=== PATIENT | male | born 1955 | race Caucasian/White ===

== ENCOUNTER 2024-07-12 10:55 | Outpatient (CLI) | payer MEDICARE, OTHER, SELFPAY ==
--- NOTE | 2024-07-12 11:18 | ECG_ITS ---
Test Date: 2024-07-12 11:39:49 Measurements Intervals [place] Rate: 80 P: 9 OR: 205 QRS: 11 QRSD: 107 T: -5 QT: 368 QTc: 427 Interpretive Statements SINUS RHYTHM LEFT VENTRICULAR HYPERTROPHY BASELINE ARTIFACT- I, II, III, AVR, AVL, AVF, V1-V6 BORDERLINE ECG No previous ECG available for comparison Electronically Signed On 07-12-2024 12:01:39 BAG END SEWER by Miller Tellez D.O.
--- OUTSIDE RECORDS SUMMARY | 2024-07-12 11:54 | XMS_ITS | Encounter Summary ---
Author Organization [facility] Address [facility] [place] [address] Care Team Providers Care Marine Superintendent Name Role Phone Dolly Aguayo DO Primary Care Provider [phone] Encounter Details Date Type Department Care Team (Late st Contact Info) Description 07/18/2023 Heliae Message Enc [facility] [address] [place] [phone] [place], [facility] Provider RE: Patient Amendment Request Social History Tobacco Use Types Packs/Day Years Used Date Smoking Tobacco: Never Smokeless Tobacco: Never Alcohol Use Standard Drinks/Week Comments Yes 0 (1 standard drink = 0.6 oz pur e alcohol) occasional 12 beer/years PHQ-2 Answer Date Recorded Patient Health Questionnaire-2 Score 0 11/01/2022 Sex and Gender Information Value Date Recorded Sex Assigned at Male 04/03/2023 10:47 AM CDT Legal Sex Male 5:28 PM CDT Gender Identity Male 04/03/2023 10:47 AM CDT Sexual Orientation Straight 04/03/2023 10 :47 AM CDT documented as of this encounter Plan of Treatment Upcoming Encounters Date Type Department Care Team (Late st Contact Info) Description 07/14/2025 11:15 AM STICK PULLER Office Visit [facility] [address] [phone] Paul Rosas MD [facility] [address] [place] [address] documented as of this encounter Visit Diagnoses Not on filedocumented in this encounter Care Teams Marine Superintendent Relationship Specialty Start Date End Date Dolly Aguayo DO [address] [place] [address] [place] [address] PCP - General FAMILY PRACTICE 11/01/22 documented as of this encounter
--- OUTSIDE RECORDS SUMMARY | 2024-07-12 11:54 | XMS_ITS | Encounter Summary ---
Author Organization [facility] Address [facility] [place] [address] Care Team Providers Care Bullet Slugs Inspector Name Role Phone Dolly Aguayo DO Primary Care Provider [phone] Encounter Details Date Type Department Care Team (Late st Contact Info) Description 06/28/2024 Locus Labst Message [facility] [place] [address] Abbi William NP [address] [address] Appointment Social History Tobacco Use Types Packs/Day Years Used Date Smoking Tobacco: Never Smokeless Tobacco: Never Alcohol Use Standard Drinks/Week Comments Yes 0 (1 standard drink = 0.6 oz pur e alcohol) occasional 12 beer/years PHQ-2 Answer Date Recorded Patient Health Questionnaire-2 Score 0 03/29/2024 Sex and Gender Information Value Date Recorded Sex Assigned at Male 04/03/2023 10:47 AM CDT Legal Sex Male 5:28 PM CDT Gender Identity Male 04/03/2023 10:47 AM CDT Sexual Orientation Straight 04/03/2023 10 :47 AM CDT documented as of this encounter Progress Notes * Abbi William NP - 06/28/2024 3:54 PM CST Needs appt Thanks NILE OFFICER documented in this encounter Plan of Treatment Upcoming Encounters Date Type Department Care Team (Late st Contact Info) Description 07/14/2025 11:15 AM JUVENILE OFFICER Office Visit [facility] [address] [facility] [address] [place] [address] Paul Rosas MD [address] [address] documented as of this encounter Visit Diagnoses Not on filedocumented in this encounter Care Teams Bullet Slugs Inspector Relationship Specialty Start Date End Date Dolly Aguayo DO [address] [place] [address] [place] [address] PCP - General FAMILY PRACTICE 11/01/22 documented as of this encounter
--- OUTSIDE RECORDS SUMMARY | 2024-07-12 11:54 | XMS_ITS | Referral Summary ---
Author Organization [facility] [address] Address [address] [facility] [address] [place] [address] Care Team Providers Care Athlete Manager Name Role Phone Dolly Aguayo DO Primary Care Provider [phone] Chau Lyn MD Unavailable [phone] Bharathi Garcia MD Unavailable [phone] Encounters Date Type Department Care Team Description 06/28/2024 1:00 PM STATE PATROL OFFICER Office Visit [facility] General & Laparoscopic Surgery [address] [facility] [address] [place] [address] Chau Lyn MD Ventral hernia with obstruction and without gangrene (Primary Dx); Umbilical hernia with obstruction, without gangrene 06/23/2024 12:45 PM STATE PATROL OFFICER - 06/23/2024 11:59 PM STATE PATROL OFFICER Hospital Encounter [facility] [phone] Discharge Disposition: Discharge to home or self care from Last 3 Months Allergies No known active allergies Medications acetaminophen 500 mg capsule Take by mouth 3 (three) times a day as needed for mild pain (pain scale 1-4) Active amLODIPine (NORVASC) 10 mg tablet Take 1 tablet (10 mg total) by mouth daily Active aspirin 81 mg enteric coated tablet Take 1 tablet (81 mg total) by mouth daily Active diclofenac sodium (VOLTAREN) 1 % gel Apply topically Active DULoxetine DR (CYMBALTA) 60 mg capsule Take 1 capsule (60 mg total) by mouth daily Active DULoxetine DR (CYMBALTA) 30 mg capsule Take 1 capsule (30 mg total) by mouth daily Active hydroCHLOROthia zide (HYDRODIURIL) 25 mg tablet Take 1 tablet (25 mg total) by mouth daily Active HYDROcodone-tylor taminophen (NORCO) 5-325 mg per tabletIndicatio ns:Pain Take 1 tablet by mouth every 6 (six) hours as needed Active losartan (COZAAR) 100 mg tablet Take 1 tablet (100 mg total) by mouth daily Active lidocaine (LIDODERM) 5 % Place 1 patch on the skin daily Remove & discard patch within 12 hours or as directed by MD. Active meloxicam (MOBIC) 15 mg tablet Take 1 tablet (15 mg total) by mouth daily Active metoprolol XL (TOPROL-XL) 50 mg extended release tablet Take 1 tablet (50 mg total) by mouth daily Active nitroglycerin (NITROSTAT) 0.[address] 1 tablet (0.4 mg total) under the tongue every 5 (five) minutes as needed for chest pain Active rosuvastatin (CRESTOR) 40 mg tablet Take 1 tablet (40 mg total) by mouth daily Active cholecalciferol (VITAMIN D-3) 2000 unit tablet Active Active Problems Problem Noted Date Diagnosed Date Ventral hernia with obstruction but no gangrene 2024 Social History Tobacco Use Types Packs/Day Years Used Date Smoking Tobacco: Never Smokeless Tobacco: Never Tobacco Cessation:Counseling Given: Not Answered AUDIT-C Answer Date Recorded Q1: How often do you have a drink containing alc ohol? Monthly or less 06/28/2024 Q2: How many drinks containi ng alcohol do you have on a typical day when you are drinking? 1 or 2 06/28/2024 Q3: How often do you have si x or more drinks on one occasion? Less than monthly 06/28/2024 Sex and Gender Information Value Date Recorded Sex Assigned at Not on file Legal Sex Male 5:11 PM STATE PATROL OFFICER Gender Identity Not on file Sexual Orientation Not on file Last Filed Vital Signs Vital Sign Reading Time Taken Comments Blood Pressure - - Pulse - - Temperature - - Respiratory Rate - - Oxygen Saturation - - Inhaled Oxygen Concentration - - Weight 124.7 kg (275 lb) 06/28/2024 1:17 PM STATE PATROL OFFICER Height 185.4 cm (6' 1 ) 06/28/2024 1:17 PM STATE PATROL OFFICER Body Mass Index 36.28 06/28/2024 1:17 PM STATE PATROL OFFICER Plan of Treatment Upcoming Encounters Date Type Department Care Team (Latest Contact Info) Description 08/04/2024 12:30 PM STATE PATROL OFFICER Hospital Encounter [facility] Operating Room [facility] [place] [phone] Chau Lyn MD [address] [facility] [address] [place], [place] [phone] 08/04/2024 12:30 PM STATE PATROL OFFICER - 08/04/2024 4:30 PM STATE PATROL OFFICER Surgery [facility] Operating [facility] [place] [address] Chau Lyn MD [address] [facility] [address] [place] [address] Robotic Assisted Ventral Hernia Repair with Mesh Scheduled Procedures Name Priority Associated Diagnoses Date/Ti me XI VENTRAL HERNIA REPAIR WITH MESH - LAPAROSCOPIC ROBOTIC Ventral hernia with obstruction but no gangrene 08/04/2024 12:30 PM STATE PATROL OFFICER Procedures Procedure Name Priority Date/Time Associated Diagnosis Comments CT BODY OUTSIDE REFERENCE Routine 06/23/2024 12:45 PM STATE PATROL OFFICER Diagnosis unknown from Last 3 Months Results * CT Body Outside Reference (06/23/2024 12:45 PM STATE PATROL OFFICER) Narrative RAD_PACS_OUTSIDE_FILM_MB - 07/05/2024 3:59 PM STATE PATROL OFFICER This order has been auto-finalized and does not contain a result. us Provider Transcribed Order IMG CT PROCEDURES Fin al Result RAD_PACS_OUTSIDE_FILM_MB from Last 3 Months Insurance MEDICARE [employer] OPEN ACCESS [employer] OPEN ACCESS Care Teams Athlete Manager Relationship Specialty Start Date End Date Dolly Aguayo DO [address] [place] [address] [place] [address] PCP - General Sports Medicine 11/12/23 Chau Lyn MD [address] [facility] [address] [place] [address] Consulting Physician General Surgery 06/28/24 Bharathi Garcia MD [address] [place] [address] Consulting Physician Urology 06/28/24
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
--- OUTSIDE RECORDS SUMMARY | 2024-07-12 11:54 | XMS_ITS | Encounter Summary ---
Author Organization [facility] Address [facility] [place] [address] Care Team Providers Care Rock Drill Operator Name Role Phone Dolly Aguayo Primary Care Provider [phone] Encounter Details Date Type Department Care Team (Late st Contact Info) Description 07/22/2023 MyChart Message Enc [facility] [address] [place] [address] Mychart, [facility] Provider lab results. Social History Tobacco Use Types Packs/Day Years [...] st Contact Info) Description 07/14/2025 11:15 AM AGRICULTURE TECHNICIAN Office Visit [facility] [address] [place] [phone] Paul Rosas MD [address] [address] documented as of this encounter Visit Diagnoses Not on filedocumented in this encounter Care Teams Rock Drill Operator Relationship Specialty Start Date End Date Dolly Aguayo DO [address] [place] [address] [place] [address] PCP - General FAMILY PRACTICE 11/01/22 documented as of this encounter
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
[2024-07-12 12:25] LABS: Prothrombin Time 12.9 Seconds (11.1-14.7)
[2024-07-12 12:26] LABS: Partial Thromboplastin Time 26.1 Seconds (22.3-36.8)
[2024-07-12 12:27] LABS: Anion Gap 13 mmol/L (4-12); Blood Urea Nitrogen 16 mg/dL (9-20); Calcium 9.5 mg/dL (8.4-10.2); Carbon Dioxide 27 mmol/L (22-30); Chloride 101 mmol/L (98-107); Estimated Glomerular Filt Rate > 60; Glucose 248 mg/dL (65-110); Potassium 3.2 mmol/L (3.4-5.0); Sodium 141 mmol/L (137-145)
== END 2024-07-12 10:56 | disposition home or self-care (01) ==
LOC: ANHSURGERY 11:01
PROVIDERS: Anesthesiology; PCP Family Medicine Sports Medicine; Visit Provider Urology
DX: Z01.818 Encounter for other preprocedural examination (principal); N20.1 Calculus of ureter; I11.9 Hypertensive heart disease without heart failure; R94.31 Abnormal electrocardiogram [ECG] [EKG]
CPT/HCPCS: 36415; 80048; 85610; 85730; 87086; 87181; 93005

== ENCOUNTER 2024-07-15 00:22 | Day surgery (SDC) | payer MEDICARE, OTHER, SELFPAY ==
--- NOTE | 2024-07-07 10:46 | PC.NURSE ---
Report to the Outpatient Waiting Room, entrance under the green pavilion located off [facility], at time _10 AM on date __07/15/24 . Planned Procedure Time: __1200 NOON .? Time changes happen often and if your time is changed the preop area will call you the afternoon before. - You and your visitor will be asked to self-screen and do not enter if you have any COVID symptoms. Please call surgeon if you need to reschedule. - A mask is optional within the hospital at this time. Patients may have clear liquids (water, carbonated beverages, clear teas, apple juice) until 3 hours prior to surgery( 9AM) with a maximum of 20 ounces. - No food from midnight until time of surgery and no smoking, or chewing TOBACCO (or any form of nicotine). No chewing gum, candy or mints. - Take only the following medications with a SIP of water on the morning of surgery: __AMLODIPINE,METOPROLOL DO NOT STOP ANY OF YOUR OTHER PRESCRIPTION MEDICATIONS PRIOR TO SURGERY EXCEPT THE FOLLOWING Medications to discontinue per physician _PT STATES HOLD___ASPIRIN AND ALL VITAMINS/SUPPLEMENTS___7 DAYS PRE OP PER DR WILHELM Date to take last dose 07/07/24 Please no make-up, nail upper sorbian, hairspray, perfume, deodorant, or body powder the day of surgery.? No jewelry (including any body piercings) or valuables the day of surgery, leave them at home.? Please take a shower or bath the night before, or the morning of, surgery with an antibacterial soap.? Wear comfortable, loose fitting clothing.? Children are encouraged to wear pajamas. - Jewelry must be removed prior to entering the operating room.? Rings and piercings that are not removed may be cut off. - The hospital will not accept responsibility for valuables.? - Please leave all valuables, including medications, at home the day of surgery. If you are going home after surgery, a licensed set key driver must drive you home.? - NO public transportation without another adult if you receive anesthesia. - We recommend that an adult stay with you for 24 hours following discharge. - We also recommend that you do not drive, make important decision, drink alcoholic beverages, or take any drugs that were not prescribed by your health care provider for at least 24 hours after your discharge time. Follow any additional instructions given to you from your surgeon. Telephone instructions given to ___PATIENT and asked if any additional questions and then verbalized understanding. Patient advised to call surgeon office or pre surgery nurse liaison [phone] if any additional questions.
[2024-07-07 11:17] VITALS: BMI 35.6
--- NOTE | 2024-07-13 07:06 | P.HP_ITS ---
History of Present Illness History of Present Illness Consent: Risks, benefits, and alternatives have been discussed and questions answered. Patient agrees to proceed with procedure. Chief complaint: right ureteral stone Narrative: Jacob [place] is a 69 year old male recently underwent evaluation for hematuria where CT scan demonstrated a 5 mm right proximal ureteral stone and tiny nonobstructing left renal stone. After discussion of options he elects for right ESWL. We will also plan cystoscopy to complete hematuria evaluation. he is aware of the risk of lithotripsy including perinephric hematoma, hematuria and need for additional procedures Review of Systems Review of Systems: All systems reviewed & are unremarkable except as noted in HPI and below PMFSH Social History Social History Smoking status: Never smoker Living arrangements: with family Spiritual care concerns: No Meds Home Medications and Allergies Home Medications ?Medication ?Instructions ?Recorded ?Confirmed ?Type acetaminophen 650 mg 650 mg PO Q12H PRN pain, severe 07/07/24 07/07/24 History tablet,extended release (8 Hour Pain Reliever) amlodipine 10 mg tablet 10 mg PO DAILY 07/07/24 07/07/24 History aspirin 81 mg tablet,delayed 81 mg PO DAILY 07/07/24 07/07/24 History release (Adult Low Dose Aspirin) coenzyme Q10 100 mg capsule 100 mg PO DAILY 07/07/24 07/07/24 History (CoQ-10) duloxetine 30 mg capsule,delayed 30 mg PO HS 07/07/24 07/07/24 History release duloxetine 60 mg capsule,delayed 60 mg PO HS 07/07/24 07/07/24 History release hydrochlorothiazide 25 mg tablet 25 mg PO DAILY 07/07/24 07/07/24 History losartan 100 mg tablet 100 mg PO DAILY 07/07/24 07/07/24 History meloxicam 15 mg tablet 15 mg PO DAILY 07/07/24 07/07/24 History metoprolol succinate 50 mg 50 mg PO DAILY 07/07/24 07/07/24 History tablet,extended release 24 hr multivitamin (Daily Multi-Vitamin 1 tablet PO DAILY 07/07/24 07/07/24 History tablet) nitroglycerin 0.4 mg sublingual 0.4 mg sublingual PRN CHEST PAIN 07/07/24 07/07/24 History tablet rosuvastatin 40 mg tablet 40 mg PO HS 07/07/24 07/07/24 History Allergies Allergy/AdvReac Type Severity Reaction Status Date / Time No Known Allergies Allergy Verified 07/07/24 10:47 Exam Const: General: no acute distress Resp: Effort & Inspection: normal respiratory effort GI: Inspection: non-distended GI Palp: No abdominal tenderness and No Guarding due to palpation present (GI) Auscultation: normal bowel sounds Assessment and Plan Assessment and plan (1) Hematuria: Code(s): R31.9 - Hematuria, unspecified Status: Acute (2) Right ureteral stone: Code(s): N20.1 - Calculus of ureter Status: Acute Assessment and Plan: * Cystoscopy, right ESWL
--- NOTE | ~2024-07-15 | CT_ITS ---
EXAMINATION: CT abdomen pelvis wo con DATE: 07/15/2024 12:24 INDICATION: Right ureteral stone TECHNIQUE: Computed tomography (CT) of the abdomen and pelvis was performed without intravenous contr ast. Automated exposure control and iterative reconstruction technique were employed. The dose-length product was 631.51 mGy-cm. COMPARISON: None FINDINGS: Calcified left lower lobe nodule consistent with old granulomatous disease. There are multiple spleni c and hepatic calcifications consistent with old granulomatous disease. There is diffuse hepatic stea tosis with focal sparing along the gallbladder fossa. Gallbladder and bilateral adrenal glands are no rmal. Dystrophic calcification in the body the pancreas likely sequela of chronic pancreatitis. There is a 4 mm nonobstructing stone at a lower pole calyx of the right kidney. No other stones in the kid neys or along the course of the ureters. 1 cm exophytic cyst at the lower pole the right kidney and 1 .5 cm cyst at the lower pole the left kidney. There is urothelial thickening and inflammatory strandi ng at the right renal pelvis which could be due to inflammation from a stone previously at the ureter opelvic junction where it ascending urinary tract infection. Small fat-containing umbilical hernia. D iffuse bladder wall thickening also with some stranding inflammatory stranding suspicious for cystiti s. Mild diverticula along the descending and sigmoid colon without adjacent from trace stranding to s uggest diverticulitis. Small bowel and appendix are normal. Small fat-containing umbilical hernia. No free intraperitoneal gas or fluid. No pathologically enlarged abdominal or pelvic lymphadenopathy. R ight total hip arthroplasty. Moderate lower thoracic and mild to moderate lumbar spondylosis. Chronic appearing mild anterior wedging at T11 and T12. IMPRESSION: 1. 4 mm nonobstructing right renal stone. 2. Wall thickening inflammatory stranding at the bladder and right renal pelvis raising suspicion for cystitis and ascending urinary tract infection. Correlate with urinalysis. Reviewed, dictated and finalized at location A. VIORAL ANALYST IMPRESSION: 1. 4 mm nonobstructing right renal stone. 2. Wall thickening inflammatory stranding at the bladder and right renal pelvis raising suspicion for cystitis and ascending urinary tract infection. Correlat e with urinalysis.
--- NOTE | ~2024-07-15 | XR_ITS ---
EXAMINATION: XR abdomen/kub 1V DATE: 07/15/2024 11:44 INDICATION: Kidney stone. TECHNIQUE: A supine view of the abdomen on 3 radiographs was obtained. COMPARISON: CT abdomen and pelvis 07/15/2024 FINDINGS: There are no dilated loops of bowel. Calcifications in the liver and spleen are consistent with old granulomatous disease. There is a phlebolith in right pelvis. There is a 4 mm stone right ki dney. There is a total right hip arthroplasty. IMPRESSION: 1. 4 mm stone in right kidney. Reviewed, dictated and finalized at location A. ENTARY SCHOOL TUTOR
--- OUTSIDE RECORDS SUMMARY | 2024-07-15 00:27 | XMS_ITS | Clinical Summary ---
Author Organization [address] Address [address] [facility] [address] [place] [address] Care Team Providers Care Charging Machine Operator Name Role Phone Dolly Aguayo DO Primary Care Provider [phone] Chau Lyn MD Unavailable [phone] Bharathi Garcia MD Unavailable [phone] Allergies No known active allergies Medications acetaminophen [...] Department Care Team Description 06/28/2024 1:00 PM MIDDLE STITCHER Office Visit [facility] General & Laparoscopic Surgery [address] [facility] [address] [place] [phone] Chau Lyn MD Ventral hernia with obstruction and without gangrene (Primary Dx); Umbilical hernia with obstruction, without gangrene 06/23/2024 12:45 PM MIDDLE STITCHER - 06/23/2024 11:59 PM MIDDLE STITCHER Hospital Encounter [facility] - Imaging [phone] Discharge Disposition: Discharge to home or self [...] on file Legal Sex Male 5:11 PM MIDDLE STITCHER Gender Identity Not on file Sexual Orientation Not on file Obstetrics History Last Filed Vital Signs Vital Sign Reading Time Taken Comments Blood Pressure - - Pulse - - Temperature - - Respiratory Rate - - Oxygen Saturation - - Inhaled Oxygen Concentration - - Weight 124.7 kg (275 lb) 06/28/2024 1:17 PM MIDDLE STITCHER Height 185.4 cm (6' 1 ) 06/28/2024 1:17 PM MIDDLE STITCHER Body Mass Index 36.28 06/28/2024 1:17 PM MIDDLE STITCHER Plan of Treatment Upcoming Encounters Date Type Department Care Team (Latest Contact Info) Description 08/04/2024 12:30 PM MIDDLE STITCHER Hospital Encounter [facility] Operating Room [address] [place] [phone] Chau Lyn MD [address] [address] 08/04/2024 12:30 PM MIDDLE STITCHER - 08/04/2024 4:30 PM MIDDLE STITCHER Surgery [facility] Operating Room [address] [place] [phone] Chau Lyn MD [address] [address] Robotic Assisted Ventral Hernia Repair with Mesh Scheduled Procedures Name Priority Associated Diagnoses Date/Ti me XI VENTRAL HERNIA REPAIR WITH MESH - LAPAROSCOPIC ROBOTIC Ventral hernia with obstruction but no gangrene 08/04/2024 12:30 PM MIDDLE STITCHER Health Maintenance Due Date Last Done Comments [...] BODY OUTSIDE REFERENCE Routine 06/23/2024 12:45 PM MIDDLE STITCHER Diagnosis unknown from Last 3 Months Results * CT Body Outside Reference (06/23/2024 12:45 PM MIDDLE STITCHER) Narrative RAD_PACS_OUTSIDE_FILM_[facility] - 07/05/2024 3:59 PM MIDDLE STITCHER This order has been auto-finalized and does not contain a result. us Provider Transcribed Order IMG CT PROCEDURES Fin al Result RAD_PACS_OUTSIDE_FILM_MB from Last 3 Months Insurance MEDICARE [employer] OPEN ACCESS MEDICARE [facility] Address: [facility] [address] [place] [address] [employer] OPEN ACCESS Care Teams Charging Machine Operator Relationship Specialty Start Date End Date Christopher AguayocyDO [facility] [address] PCP - General Sports Medicine 11/12/23 Chau Lyn MD [address] [place] [address] Consulting Physician General Surgery 06/28/24 Bharathi Garcia MD [address] [place] [address] Consulting Physician Urology 06/28/24
--- OUTSIDE RECORDS SUMMARY | 2024-07-15 00:27 | XMS_ITS | Referral Summary ---
Author Organization [facility] [address] Address [address] [facility] [address] [place] [address] Care Team Providers Care Parking Meter Servicer Name Role Phone Dolly Aguayo DO Primary Care Provider [phone] Chau Lyn MD Unavailable [phone] Bharathi Garcia MD Unavailable [phone] Encounters Date Type Department Care Team Description 06/28/2024 1:00 PM SENIOR NET DEVELOPER Office Visit [facility] General & Laparoscopic Surgery [address] [facility] [address] [place] [address] Chau Lyn MD Ventral hernia with obstruction and without gangrene (Primary Dx); Umbilical hernia with obstruction, without gangrene 06/23/2024 12:45 PM SENIOR NET DEVELOPER - 06/23/2024 11:59 PM SENIOR NET DEVELOPER Hospital Encounter [facility] - Imaging [phone] Discharge Disposition: Discharge to home or self [...] on file Legal Sex Male 5:11 PM SENIOR NET DEVELOPER Gender Identity Not on file Sexual Orientation Not on file Last Filed Vital Signs Vital Sign Reading Time Taken Comments Blood Pressure - - Pulse - - Temperature - - Respiratory Rate - - Oxygen Saturation - - Inhaled Oxygen Concentration - - Weight 124.7 kg (275 lb) 06/28/2024 1:17 PM SENIOR NET DEVELOPER Height 185.4 cm (6' 1 ) 06/28/2024 1:17 PM SENIOR NET DEVELOPER Body Mass Index 36.28 06/28/2024 1:17 PM SENIOR NET DEVELOPER Plan of Treatment Upcoming Encounters Date Type Department Care Team (Latest Contact Info) Description 08/04/2024 12:30 PM SENIOR NET DEVELOPER Hospital Encounter [facility] Operating Room [facility] [place] [phone] Chau Lyn MD [address] [facility] [address] [place], [place] [phone] 08/04/2024 12:30 PM SENIOR NET DEVELOPER - 08/04/2024 4:30 PM SENIOR NET DEVELOPER Surgery [facility] Operating Room [facility] [place] [address] Chau Lyn MD [address] [facility] [address] [place] [address] Robotic Assisted Ventral Hernia Repair with Mesh Scheduled Procedures Name Priority Associated Diagnoses Date/Ti me XI VENTRAL HERNIA REPAIR WITH MESH - LAPAROSCOPIC ROBOTIC Ventral hernia with obstruction but no gangrene 08/04/2024 12:30 PM SENIOR NET DEVELOPER Procedures Procedure Name Priority Date/Time Associated Diagnosis Comments CT BODY OUTSIDE REFERENCE Routine 06/23/2024 12:45 PM SENIOR NET DEVELOPER Diagnosis unknown from Last 3 Months Results * CT Body Outside Reference (06/23/2024 12:45 PM SENIOR NET DEVELOPER) Narrative RAD_PACS_OUTSIDE_FILM_[facility] - 07/05/2024 3:59 PM SENIOR NET DEVELOPER This order has been auto-finalized and does not contain a result. us Provider Transcribed Order IMG CT PROCEDURES Fin al Result RAD_PACS_OUTSIDE_FILM_MB from Last 3 Months Insurance MEDICARE [employer] OPEN ACCESS [employer] OPEN ACCESS Care Teams Parking Meter Servicer Relationship Specialty Start Date End Date Dolly Aguayo DO [address] [place] [address] [place] [address] PCP - General Sports Medicine 11/12/23 Chau Lyn MD [address] [facility] [address] [place] [address] Consulting Physician General Surgery 06/28/24 Bharathi Garcia MD [address] [place] [address] Consulting Physician Urology 06/28/24
--- OUTSIDE RECORDS SUMMARY | 2024-07-15 00:27 | XMS_ITS | Encounter Summary ---
Author Organization [facility] Address [facility] [place] [address] Care Team Providers Care Control Cabinet Assembler Name Role Phone Dolly Aguayo DO Primary Care Provider [phone] Encounter Details Date Type Department Care Team (Late st Contact Info) Description 06/28/2024 [facility] Managementhart Message [facility] [place] [address] Abbi William NP [address] [address] Appointment Social History Tobacco Use Types Packs/Day [...] 06/28/2024 3:54 PM CST Needs appt Thanks LINEMAN documented in this encounter Plan of Treatment Upcoming Encounters Date Type Department Care Team (Late st Contact Info) Description 09/03/2024 10:00 [place] [address] [place] [address] Abbi William NP Three [address] [address] 07/14/2025 11:15 AM TOLL LINEMAN Office Visit [facility] [address] [place] [phone] Paul Rosas MD Three [facility]. [address] [address] documented as of this encounter Visit Diagnoses Not on filedocumented in this encounter Care Teams Control Cabinet Assembler Relationship Specialty Start Date End Date Dolly Aguayo DO [address] [place], [place] [phone] PCP - General FAMILY PRACTICE 11/01/22 documented as of this encounter
--- OUTSIDE RECORDS SUMMARY | 2024-07-15 00:27 | XMS_ITS | Encounter Summary ---
Author Organization [facility] Address [facility] [place] [address] Care Team Providers Care Photographic Reproduction Technician Name Role Phone Dolly Aguayo DO Primary Care Provider [phone] Reason for Referral * Imaging (Routine) - New Request Specialty Diagnoses / Procedures Referred By Candelaria t Referred To Contact RADIOLOGY Diagnoses Aneurysm of ascending aorta without rupture (CMS/HCC) Procedures CTA CHEST Abbi William NP [address] [place] [address] Phone: tel: fax: Referral ID Status Reason Start Date Expiration Date V isits Requested Visits Authorized [id number] New Request 07/14/2024 07/14/2025 1 1 NAUTICS TEACHER Encounter Details Date Type Department Care Team (Late st Contact Info) Description 07/14/2024 Orders Only [facility] [address] [place], [place] [phone] Abbi William NP [facility] [address] [place], [place] [phone] Social History Tobacco Use Types Packs/Day Years [...] Info) Description 09/03/2024 10:[address] [place] [address] [facility] [place] [address] Abbi William NP Three [address] [address] 07/14/2025 11:15 AM AERONAUTICS TEACHER Office Visit [facility] [address] [place] [phone] Paul Rosas MD Three [facility]. [address] [address] Scheduled Orders Name Type Priority Associated Diagnoses Orde r Schedule CTA CHEST CT Routine Aneurysm of ascending aorta without rupture (CMS/HCC) Expected: 07/14/2024 (Approximate), Expires: 07/14/2025 documented as of this encounter Visit Diagnoses Diagnosis Aneurysm of ascending aorta without rupture (CMS/HCC)- Primary documented in this encounter Care Teams Photographic Reproduction Technician Relationship Specialty Start Date End Date Dolly Aguayo DO [address] [place] [address] [place] [address] PCP - General FAMILY PRACTICE 11/01/22 documented as of this encounter
--- OUTSIDE RECORDS SUMMARY | 2024-07-15 00:27 | XMS_ITS | Encounter Summary ---
Author Organization [facility] Address [facility] [place] [address] Care Team Providers Care Retail Cosmetics Sales Counter Manager Name Role Phone Dolly Aguayo DO Primary Care Provider [phone] Encounter Details Date Type Department Care Team (Late st Contact Info) Description 07/22/2023 MyChart Message Enc [facility] [address] [place] [address] Mychart, [facility] Provider lab results. Social [...] Info) Description 09/03/2024 10:00 AM CDT Appointment [facility] [address] [place] [address] Abbi William, REHABILITATION LIAISON [address] [address] 07/14/2025 11:15 AM INTERNAL SECURITY MANAGER Office Visit [facility] [address] [place] [address] Paul Rosas MD [address] [address] documented as of this encounter Visit Diagnoses Not on filedocumented in this encounter Care Teams Retail Cosmetics Sales Counter Manager Relationship Specialty Start Date End Date Dolly Aguayo DO [address] [facility] [address] [place] [phone] PCP - General FAMILY PRACTICE 11/01/22 documented as of this encounter
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
--- OUTSIDE RECORDS SUMMARY | 2024-07-15 00:27 | XMS_ITS | Encounter Summary ---
Author Organization [facility] Address [facility] [place] [address] Care Team Providers Care Biofuels Product Development Manager Name Role Phone Dolly Aguayo DO Primary Care Provider [phone] Encounter Details Date Type Department Care Team (Late st Contact Info) Description 07/18/2023 [employer] Message Enc [facility] Health Information Services [address] [place] [address] [place], [facility] Provider RE: Patient Amendment Request Social History [...] Info) Description 09/03/2024 10:00 [place] [address] [place] [address] Abbi William, CHUCKY [address] [address] 07/14/2025 11:15 AM EYE SPECIALIST Office Visit [facility] [place] [address] Paul Rosas MD [address] [address] documented as of this encounter Visit Diagnoses Not on filedocumented in this encounter Care Teams Biofuels Product Development Manager Relationship Specialty Start Date End Date Dolly Aguayo DO [address] [facility] [address] [place], [place] [phone] PCP - General FAMILY PRACTICE 11/01/22 documented as of this encounter
--- NOTE | 2024-07-15 06:37 | WPDHPUPDATE1 ---
History and Physical Update Update Date/Time: 07/15/24 06:37 History and Physical has been reviewed, including an updated exam of the patient. There are NO changes in the patient's condition. Risks, benefits, and alternatives have been discussed and questions answered. Patient agrees to proceed with procedure.
--- NOTE | 2024-07-15 12:05 | WPDANESEPPF ---
Anes - Initial Pre Proc Eval Procedure: Operation Date: 07/15/24 13:30 Proposed Procedures p Right Ureteral Extracorporeal Shock Wave Lithotripsy, - Bharathi Garcia MD s Flexible Cystoscopy - Bharathi Garcia MD Date/Time: 07/15/24 12:05 Surgeon: Bharathi Garcia MD Pre Op Diagnosis: right ureteral stone Patient Data Age: 69 Gender: M Height: 1.85 m Weight: 122.5 kg Allergies Allergy/AdvReac Type Severity Reaction Status Date / Time No Known Allergies Allergy Verified 07/07/24 10:47 Home Medications ?Medication ?Instructions ?Recorded ?Confirmed ?Type acetaminophen 650 mg 650 mg PO Q12H PRN pain, severe 07/07/24 07/07/24 History tablet,extended release (8 Hour Pain Reliever) amlodipine 10 mg tablet 10 mg PO DAILY 07/07/24 07/07/24 History aspirin 81 mg tablet,delayed 81 mg PO DAILY 07/07/24 07/07/24 History release (Adult Low Dose Aspirin) coenzyme Q10 100 mg capsule 100 mg PO DAILY 07/07/24 07/07/24 History (CoQ-10) duloxetine 30 mg capsule,delayed 30 mg PO HS 07/07/24 07/07/24 History release duloxetine 60 mg capsule,delayed 60 mg PO HS 07/07/24 07/07/24 History release hydrochlorothiazide 25 mg tablet 25 mg PO DAILY 07/07/24 07/07/24 History losartan 100 mg tablet 100 mg PO DAILY 07/07/24 07/07/24 History meloxicam 15 mg tablet 15 mg PO DAILY 07/07/24 07/07/24 History metoprolol succinate 50 mg 50 mg PO DAILY 07/07/24 07/07/24 History tablet,extended release 24 hr multivitamin (Daily Multi-Vitamin 1 tablet PO DAILY 07/07/24 07/07/24 History tablet) nitroglycerin 0.4 mg sublingual 0.4 mg sublingual PRN CHEST PAIN 07/07/24 07/07/24 History tablet rosuvastatin 40 mg tablet 40 mg PO HS 07/07/24 07/07/24 History Laboratory Tests 07/15/24 11:44 Urine Color Pending Urine Appearance Pending Urine pH Pending Ur Specific Grace Pending Urine Protein Pending Urine Glucose (UA) Pending Urine Ketones Pending Ur Blood (Man) Pending Urine Nitrate Pending Urine Bilirubin Pending Urine Urobilinogen Pending Leukocyte Esterase Rfl Pending Patient hx anesthesia problems: none Family hx anesthesia problems: none Results Review: All pre-operative results and documents have been reviewed as part of the pre-operative evaluation. [facility] Past Medical History Medical History (Updated 07/15/24 @ 12:05 by Arnoldo Cardoza MD) Obesity HTN (hypertension) Social History Social History Smoking status: Never smoker Living arrangements: with family Spiritual care concerns: No Anes - Eval Final PreProcedure Day of Procedure 07/15/24 12:05 Patient weight: obese Heart: regular rate and rhythm Lungs: clear to auscultation Airway: Mallampati scale class II Neurological: alert and oriented Last oral intake: >/= 8 hours ASA classification: III Emergent: no Anesthetic plan: proceed Anesthesia type and monitoring: general LMA and standard monitoring Results Review: All pre-operative results and documents have been reviewed as part of the pre-operative evaluation. Informed Consent: The patient's anesthetic plan and its attendant risks and benefits were discussed with the patient/family/POA. Questions were solicited and answers provided to the satisfaction of the patient/family/POA.
[2024-07-15 12:09] VITALS: BP 119/73; PULSE 80; RESP 20; TEMP 36.4; O2SAT 95
[2024-07-15 12:19] LABS: Add Urine Microscopic? YES; Appearance Urine Turbid (Clear); Bilirubin Urine Negative (Negative); Blood Urine 2+ (Negative); Color Urine Dark Yellow (Yellow); Glucose Urine UA Negative (Negative); Ketones Urine Trace mg/dL (Negative); Leukocyte Esterase Ur 3+ LEU/UL (Negative); Mucus Urine Present /lpf; Nitrate Urine Negative (Negative); Protein Urine 2+ mg/dL (Negative); RBC Urine 51-100 /hpf (0-2); Specific Grav Ur 1.018 (1.001-1.035); Squamous Epithelial Cell Urine None Seen /hpf (Few); Urobilinogen Urine 0.2 mg/dL (<2.0); WBC Urine >100 /hpf (0-3)
[2024-07-15 12:22] LABS: Bacteria Urine 1+ /hpf
== END 2024-07-15 13:25 | disposition home or self-care (01) ==
PROVIDERS: PCP Family Medicine Sports Medicine; Visit Provider Urology
PROC: (CPT 50590; principal; 2024-07-15 13:30)
PROC: 0TJB8ZZ Inspection of Bladder, Via Natural or Artificial Opening Endoscopic (ICD-10-PCS; CPT 52000; 2024-07-15 13:30)
DX: N20.0 Calculus of kidney (principal); R31.9 Hematuria, unspecified; I10 Essential (primary) hypertension; E66.9 Obesity, unspecified; Z68.35 Body mass index [BMI] 35.0-35.9, adult; Z79.82 Long term (current) use of aspirin; Z53.8 Procedure and treatment not carried out for other reasons
CPT/HCPCS: 74018; 74176; 81001; 87086; 99212; G0463; J2250; J3010

== ENCOUNTER 2025-05-06 02:29 | Day surgery (SDC) | payer MEDICARE, SELFPAY ==
[2025-05-04 13:44] VITALS: BMI 33.3
--- NOTE | 2025-05-04 14:01 | PC.NURSE ---
[facility] has started construction of its new state of the art ER which will open Spring 2026. With this, we anticipate parking may be a challenge for some our surgical patients and families. Parking spaces are limited but are available for all Surgical, obstetrics, and ER patients sharing this lot. If you arrive and find you are having a hard time finding a parking space, please note that we understand the challenges, please drive around the hospital and park near Hospital Entrance 1. When you enter this entrance, you can ask a volunteer to direct or take you back to the surgical waiting area to check in. We appreciate everyone?s understanding of these expected challenges while we build for your future. Report to the Outpatient Waiting Room, entrance under the green pavilion located off [address], at time ___12:00pm____ on date __05/06/25____. Planned Procedure Time: _2:00pm .? Time changes happen often and if your time is changed the preop area will call you the afternoon before. - You and your visitor will be asked to self-screen and do not enter if you have any COVID symptoms. Please call surgeon if you need to reschedule. - A mask is optional within the hospital at this time. Patients may have clear liquids (water, carbonated beverages, clear teas, apple juice) until 3 hours prior to surgery with a maximum of 20 ounces. - No food from midnight until time of surgery and no smoking, or chewing tobacco (or any form of nicotine). No chewing gum, candy or mints. (11:00am) Take only the following medications with a SIP of water on the morning of surgery: ____Amlodipine and Metoprolol, Tylenol if need DO NOT STOP ANY OF YOUR OTHER PRESCRIPTION MEDICATIONS PRIOR TO SURGERY EXCEPT THE FOLLOWING Hold all vitamins & supplements from today until after surgery per Dr Garcia. Medications to discontinue per physician NO MORE ASPIRIN OR KETORLAC Till after surgery per DR Garcia Date to take last dose 05/04/25 Please no make-up, nail yoruba, hairspray, perfume, deodorant, or body powder the day of surgery.? No jewelry (including any body piercings) or valuables the day of surgery, leave them at home.? Please take a shower or bath the night before, or the morning of, surgery with an antibacterial soap.? Wear comfortable, loose fitting clothing.? - Jewelry must be removed prior to entering the operating room.? Rings and piercings that are not removed may be cut off. - The hospital will not accept responsibility for valuables.? - Please leave all valuables, including medications, at home the day of surgery. If you are going home after surgery, a licensed clark driver must drive you home.? - NO public transportation without another adult if you receive anesthesia. - We recommend that an adult stay with you for 24 hours following discharge. - We also recommend that you do not drive, make important decision, drink alcoholic beverages, or take any drugs that were not prescribed by your health care provider for at least 24 hours after your discharge time. Follow any additional instructions given to you from your surgeon. Telephone instructions given to __Patient and asked if any additional questions and then verbalized understanding. Patient advised to call surgeon office or pre surgery nurse liaison [phone] if any additional questions.
[2025-05-06] VITALS (13 sets, daily range): BP systolic 95–155; BP diastolic 67–93; PULSE 66–82; RESP 14–20; TEMP 36.3–37.1; O2SAT 94–100; BMI 34.1
--- NOTE | ~2025-05-06 | XR_ITS ---
EXAMINATION: XR retrograde pyelo w/stent BI DATE: 05/06/2025 16:33 INDICATION: Bilateral internal ureteral stent placement TECHNIQUE: Fluoroscopic images from a bilateral internal ureteral stent placement are submitted for review. 90 seconds of fluoroscopy time. FINDINGS: There are bilateral double-J internal ureteral stent projecting in expected position, with proximal Buhl loop at the level of the renal pelvis. Distal loops not imaged. IMPRESSION: 1. Bilateral internal ureteral stent placement. Please refer to real-time procedural findings for details. Reviewed, dictated and finalized at location I. CIATE PROFESSOR OF PATHOLOGY IMPRESSION: 1. Bilateral internal ureteral stent placement. Please refer to real-time pro cedural findings for details.
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
--- NOTE | 2025-05-06 06:25 | WPDHPUPDATE1 ---
History and Physical Update Update Date/Time: 05/06/25 06:25 History and Physical has been reviewed, including an updated exam of the patient. There are NO changes in the patient's condition. Risks, benefits, and alternatives have been discussed and questions answered. Patient agrees to proceed with procedure.
[2025-05-06] MEDS: LACTATED RINGERS 1,000 ML 30 ML IV CONT ×2 (13:35→17:23)
--- NOTE | 2025-05-06 14:08 | WPDANESEPPF ---
Anes - Initial Pre Proc Eval Procedure: Operation Date: 05/06/25 15:00 Proposed Procedures p Cystoscopy, Bilateral Ureteroscopy, Possible Bilateral Retrograde Pyelogram, Possible Bilateral Stone Extraction, Possible Bilateral Stent Placement, Possible Holmium Laser, - Bharathi Garcia MD s Possible Bladder Biopsy, Possible Bilateral Ureteral Biopsy - Bharathi Garcia MD Date/Time: 05/06/25 14:08 Surgeon: Bharathi Garcia MD Pre Op Diagnosis: kidney stones Patient Data Age: 69 Gender: M Height: 1.91 m Weight: 121 kg Allergies Allergy/AdvReac Type Severity Reaction Status Date / Time isosorbide (From Imdur) AdvReac Intermediate severe Verified 05/04/25 14:16 headache Home Medications ?Medication ?Instructions ?Recorded ?Confirmed ?Type acetaminophen 650 mg 650 mg PO Q12H PRN pain, severe 07/07/24 05/04/25 History tablet,extended release (8 Hour Pain Reliever) amlodipine 10 mg tablet 10 mg PO DAILY 07/07/24 05/04/25 History aspirin 81 mg tablet,delayed 81 mg PO DAILY 07/07/24 05/04/25 History release (Adult Low Dose Aspirin) Held on 05/04/25. Instructions: .Provider Order coenzyme Q10 100 mg capsule 100 mg PO DAILY 07/07/24 05/04/25 History (CoQ-10) duloxetine 30 mg capsule,delayed 30 mg PO HS 07/07/24 05/04/25 History release duloxetine 60 mg capsule,delayed 60 mg PO HS 07/07/24 05/04/25 History release hydrochlorothiazide 25 mg tablet 25 mg PO DAILY 07/07/24 05/04/25 History losartan 100 mg tablet 100 mg PO DAILY 07/07/24 05/04/25 History metoprolol succinate 50 mg 50 mg PO DAILY 07/07/24 05/04/25 History tablet,extended release 24 hr multivitamin (Daily Multi-Vitamin 1 tablet PO DAILY 07/07/24 05/04/25 History tablet) nitroglycerin 0.4 mg sublingual 0.4 mg sublingual PRN CHEST PAIN 07/07/24 05/04/25 History tablet rosuvastatin 40 mg tablet 40 mg PO HS 07/07/24 05/04/25 History cholecalciferol (vitamin D3) 50 50 mcg PO DAILY 05/04/25 05/04/25 History mcg (2,000 unit) tablet (D3 DOTS) ketorolac 10 mg tablet 10 mg PO DAILY PRN pain 05/04/25 05/04/25 History Held on 05/04/25. Instructions: .Provider Order tamsulosin 0.4 mg capsule 0.4 mg PO HS 05/04/25 05/04/25 History Patient hx anesthesia problems: none Family hx anesthesia problems: none Results Review: All pre-operative results and documents have been reviewed as part of the pre-operative evaluation. [facility] Past Medical History Medical History Obesity HTN (hypertension) Social History Social History Smoking status: Never smoker Second hand tobacco smoke exposure: No Alcohol intake: current Alcohol use details: 1 per mos Substance use: never Living arrangements: with family Additional living arrangements comments: Spiritual care concerns: No Anes - Eval Final PreProcedure Day of Procedure 05/06/25 14:08 Patient weight: obese Heart: regular rate and rhythm Lungs: clear to auscultation Airway: Mallampati scale class 1 Neurological: alert and oriented Last oral intake: >/= 8 hours ASA classification: III Emergent: no Anesthetic plan: proceed Anesthesia type and monitoring: general LMA and standard monitoring Results Review: All pre-operative results and documents have been reviewed as part of the pre-operative evaluation. Informed Consent: The patient's anesthetic plan and its attendant risks and benefits were discussed with the patient/family/POA. Questions were solicited and answers provided to the satisfaction of the patient/family/POA.
[2025-05-06] MEDS: ceFAZolin 3 GM/D5W 100 ML 100 ML IVPB (15:15)
[2025-05-06] MEDS: LIDOCAINE 2% GEL UROJET 10 ML PKG MUCOUS MEM (15:28)
--- NOTE | 2025-05-06 15:56 | S_PTH ---
PATIENT: Jacob Mast LOC: [facility] U#:[id number] AGE/SX: 69/M ROOM: RE05/06/[address]: Bharathi Garcia MD : 1955 BED: DIS: 05/06/2025 SPEC #: [id number] RECD: 05/09/25 07:45 STATUS: NICO RERubens #: [id number] CLARI: 05/06/25 15:[address]: Bharathi Garcia DEPT: [facility] Surgical RECD BY: Clarisa Marquez ENTERED: 05/09/25 07:46 SP TYPE: Surgical OTHR DR: Dolly Aguayo, DO Tissues: A - Ureteral Biopsy B - Ureteral Biopsy C - Urine Procedures: Hematoxylin and Eosin Stain Gross and Microscopic Level 4 Cytopathology Cytospin
--- NOTE | 2025-05-06 16:32 | P.OP_ITS ---
Procedure Note - Detailed Date of Procedure 05/06/25 Pre-op Diagnosis Bilateral ureteral stones Post-op Diagnosis Other (Bilateral ureteritis) Procedure Performed Cystoscopy, bilateral retrograde pyelography, bilateral ureteroscopy with b iopsy, bilateral ureteral stent placement Surgeon Bharathi Garcia MD Anesthesia General Findings Bilateral mid ureteral inflammatory changes consistent with ureteritis Description of Procedure Unusual procedure today. The patient is prepped draped in routine sterile fashion while in dorsal lithotomy position after the uneventful induction of a general anesthetic. Cystoscopy was undertaken with a 19 F cystoscope. He has moderate lateral lobe hyperplasia with a small median lobe of the prostate. Prostatic urethra was estimated at 2-2.5 cm. The bladder shows some mild diffuse hyperemia consistent with cystitis. Urine was collected for culture and cytology. 0.035 in glidewire was advanced in the left ureter under fluoroscopy and the ureter is dilated with an 8 F 10 F dilator. Ureteroscopy was 1st undertaken with a short tapered semi-rigid ureteral scope. The distal ureter mucosa is normal without inflammatory change hyperemia or neoplasm. Proximal ureter and collecting system is examined after obtaining a retrograde pyelography to ensure examination of all calices. He has been unusual pattern of papillary changes in the mid ureter that spans for proximally 2-3 cm. This does not appear typical for urothelial carcinoma but instead an inflammatory ureteritis. There was 1 tiny 2 mm stone at that site. I attempted to extracted with a basket but it disintegrated with trapping the basket. Right ureteroscopy and retrograde pyelography was undertaken in a similar fashion. He has an almost identical finding on that side pre with evidence of ureteritis in the mid ureter. There is no identifiable stone on the right side. The distal ureter and collecting system were endoscopically normal. I did obtain cold cup biopsies from each area of changes each ureter. I opted to place 4.8 F wire length stents bilaterally. These were positioned with the proximal coil in renal pelvis and distal coil in the bladder. Scopes wires removed he was taken recovery room good condition.
[2025-05-06] MEDS: ONDANSETRON INJ 4 MG/2 ML VIAL IV PUSH (16:57)
== END 2025-05-06 19:30 | disposition home or self-care (01) ==
PROVIDERS: PCP Family Medicine Sports Medicine; Visit Provider Urology
PROC: (CPT 52352; principal; 2025-05-06 15:00)
PROC: 0TBB8ZX Excision of Bladder, Via Natural or Artificial Opening Endoscopic, Diagnostic (ICD-10-PCS; CPT 52204; 2025-05-06 15:00)
DX: N20.0 Calculus of kidney (principal); N28.89 Other specified disorders of kidney and ureter; N40.0 Benign prostatic hyperplasia without lower urinary tract symptoms; I10 Essential (primary) hypertension; E78.00 Pure hypercholesterolemia, unspecified; E66.9 Obesity, unspecified; Z68.34 Body mass index [BMI] 34.0-34.9, adult; Z79.891 Long term (current) use of opiate analgesic; Z79.82 Long term (current) use of aspirin; Z98.890 Other specified postprocedural states
CPT/HCPCS: 52354; 52332; 74420; 88108; 88305; C1758; C1769; C2617; J0690; J1200; J2250; J2270; J2405; J2704; J7120; Q9966